=== PATIENT | male | born 1945 | race Caucasian/White ===

== ENCOUNTER 2016-07-21 03:58 | Inpatient (IN) | payer OTHER, MEDICARE ==
[2016-07-21] VITALS (12 sets, daily range): BP systolic 142–230; BP diastolic 74–107; PULSE 62–105; RESP 15–20; TEMP 95.7–98.5; O2SAT 97–100
[~2016-07-21 03:58] MED LIST: AMOX500T PO; ASPI81 PO; BUSP15TA PO; DIPH50TA PO; DOCU1CAP39 PO; DONE10TA14 PO; DULO60 PO; GLUC1CAP14 PO; HCTZ25 PO; LAMI200T PO; LATA.005%O EACH EYE; LISI-360 PO; LISI20 PO; LORA-392 PO; MYLASUS2 PO; OMEG5CAP PO; PRAV40 PO; PROT40TA PO; QUET200 PO; RISPM2 PO; SAXA2.5T PO; TURM500C PO; TYLE500T PO; VITA-13 PO; VITA100020 IM; WELL150T PO; ZANT300T PO; [UNRECOGNIZED DRUG - OTHER] SS
[2016-07-21 04:45] LABS: BASOPHIL # 0.1 TH/MM3 (0-0.2); BASOPHIL % 0.9 % (0.0-2.0); EOSINOPHIL # 0.7 TH/MM3 (0-0.4); HEMATOCRIT 40.1 % (39.0-51.0); HEMO FLAGS DIFF FINAL; LYMPH % 24.5 % (9.0-44.0); LYMPHOCYTE # 2.1 TH/MM3 (1.0-4.8); MEAN CELL VOLUME 85.8 FL (80.0-100.0); MEAN CORPUSCULAR HEMOGLOBIN 29.3 PG (27.0-34.0); MEAN CORPUSCULAR HGB CONC 34.1 % (32.0-36.0); MONO % 9.8 % (0.0-8.0); NEUT % 56.8 % (16.0-70.0); PLATELET COUNT 173 TH/MM3 (150-450); RED BLOOD COUNT 4.67 MIL/MM3 (4.50-5.90); RED CELL DISTRIBUTION WIDTH 13.8 % (11.6-17.2); WHITE BLOOD COUNT 8.8 TH/MM3 (4.0-11.0)
[2016-07-21 04:59] LABS: BICARBONATE 27.6 MEQ/L (21.0-32.0); POTASSIUM 3.4 MEQ/L (3.5-5.1)
--- NOTE | 2016-07-21 05:46 | PD ---
HPI Chief Complaint: Hypertension Time Seen by Provider: 05:45 Travel History International Travel<30 days: No Contact w/Intl Traveler<30days: No Traveled to known affect area: No History of Present Illness HPI The patient is 8 years old. He complains of sudden onset total body pain with chest pressure and shortness of breath. He was also somewhat diaphoretic. He has a history of hypertension hyperlipidemia and diabetes. He reports compliance with his medications including lisinopril and hydrochlorothiazide. He has had no cough he has had no fever. Symptom onset was about 4 hours prior to ER arrival. Timing constant. He quit smoking 4 years ago PFSH Past Medical History Bipolar Disorder: Yes Anxiety: Yes Depression: Yes Cardiovascular Problems: Yes Diabetes: Yes Patient Takes Glucophage: No Diminished Hearing: No Diverticulitis: Yes Endocrine: No Gastrointestinal Disorders: Yes (STATES HX OF ABD PAIN, UNKNOWN CAUSE) GERD: Yes Genitourinary: No Hypertension: Yes Musculoskeletal: Yes (HX OF JAW PAIN) Neurologic: Yes (Diabetic Neuropathy) Psychiatric: Yes (Schizoaffective D/O) Migraines: No Radiation Therapy: No Renal Failure: Yes (Chronic Kidney Disease, Stage 3) Schizophrenia: Yes Seizures: No Tetanus Vaccination: < 5 Years Past Surgical History Surgical History: No Previous Surgery Ear Surgery: Yes Social History Alcohol Use: No (DENIES USING ETOH IN >25 YEARS) Tobacco Use: Yes (quit 4 years ago) Substance Use: No Allergies-Medications (Allergen,Severity, Reaction): Coded Allergies: Amlodipine (Verified Allergy, Severe, Nausea/Vomiting, 07/21/16) Dicyclomine (Verified Allergy, Severe, 07/21/16) abd pain Glipizide (Verified Allergy, Severe, Diarrhea, 07/21/16) Lamictal (Verified Allergy, Severe, 07/21/16) [place] (Verified Allergy, Severe, 07/21/16) disorriented Omeprazole (Verified Allergy, Severe, 07/21/16) abd pain Reglan (Verified Allergy, Severe, Restlessness, 07/21/16) Lactose (Verified Allergy, Intermediate, 07/21/16) Reported Meds & Prescriptions Reported Meds & Active Scripts Active Percocet (Oxycodone-Acetaminophen) 5-325 mg Tab 2 Tab PO Q6H PRN Reported Stool Softener (Docusate Sodium) 100 Mg Cap Motrin Ib (Ibuprofen) 200 Mg Tab 200 Mg PO Q4H PRN Benadryl Allergy (Diphenhydramine HCl) 25 Mg Cap Turmeric Curcumin ([employer] Products) 1 Cap Fish Oil ([place]-3 Fatty Acids) 500 Mg Cap Glucosamine Chondroitin M (Pyiktptnuos-Pbnbfxerpbj-Sub C-) 1 Cap Cap Glucosamine (Glucosamine Sulfate) 500 Mg Cap 500 Mg PO DAILY Vitamin D (Cholecalciferol) 1,000 Unit Cap Aspirin 81 (Aspirin) 81 Mg Tabdr 81 Mg PO DAILY Hydrochlorothiazide 25 Mg Tab 25 Mg PO DAILY Lisinopril 10 Mg Tab 10 Mg PO DAILY Lamotrigine 200 Mg Tab 200 Mg PO BID Buspirone (Buspirone HCl) 30 Mg Tab 30 Mg PO BID Anti-Fungal (Clotrimazole (Topical)) 1 % Cre Onglyza (Saxagliptin) 2.5 Mg Tab 2.5 Mg PO DAILY Pravastatin 40 Mg Tab 40 Mg PO DAILY Latanoprost Opth Drops (Latanoprost) 0.005% Drops 1 Drop EACH EYE HS Refrigerate until opened. Vitamin B12 (Cyanocobalamin) 500 Mcg Tab 500 Mcg PO DAILY Donepezil 10 Mg Tab 10 Mg PO DAILY Bupropion HCl ER 12 HR (Bupropion HCl) 150 Mg Tab 150 Mg PO DAILY Pantoprazole (Pantoprazole Sodium) 40 Mg Tab 40 Mg PO DAILY Duloxetine DR (Duloxetine HCl) 60 Mg Capdr 60 Mg PO DAILY Quetiapine (Quetiapine Fumarate) 400 Mg Tab 400 Mg PO HS Ranitidine (Ranitidine HCl) 300 Mg Tab 300 Mg PO BID Review of Systems Except as stated in HPI: all other systems reviewed are Neg General / Constitutional: No: Fever Physical Exam Narrative GENERAL: 71-year-old male well-nourished well-developed SKIN: Warm and dry. HEAD: Atraumatic. Normocephalic. EYES: Pupils equal and round. No scleral icterus. No injection or drainage. ENT: No nasal bleeding or discharge. Mucous membranes pink and moist. NECK: Trachea midline. No JVD. CARDIOVASCULAR: Regular rate and rhythm. No murmur appreciated. RESPIRATORY: No accessory muscle use. Clear to auscultation. Breath sounds equal bilaterally. GASTROINTESTINAL: Abdomen soft, non-tender, nondistended. Hepatic and splenic margins not palpable. MUSCULOSKELETAL: No obvious deformities. No clubbing. No cyanosis. No edema. Palpable dorsalis pedis and posterior tibialis pulses bilaterally NEUROLOGICAL: Awake and alert. No obvious cranial nerve deficits. Motor grossly within normal limits. Normal speech. PSYCHIATRIC: Appropriate mood and affect; insight and judgment normal. Data Data Last Documented VS Vital Signs Date Time Temp Pulse Resp B/P Pulse Ox O2 Delivery O2 Flow Rate FiO2 07/21/16 07:31 65 16 186/85 99 Nasal Cannula 3 07/21/16 04:01 98.5 Orders Electrocardiogram (07/21/16 04:08) Complete Blood Count With Diff (07/21/16 04:08) Basic Metabolic Panel (Bmp) (07/21/16 04:08) Chest, Single Ap (07/21/16 04:08) Iv Access Insert/Monitor (07/21/16 04:08) Electrocardiogram (07/21/16 05:54) Prothrombin Time / Inr (Pt) (07/21/16 05:54) Act Partial Throm Time (Ptt) (07/21/16 05:54) Troponin I (07/21/16 05:54) Ecg Monitoring (07/21/16 05:54) Iv Access Insert/Monitor (07/21/16 05:54) Oximetry (07/21/16 05:54) Aspirin Chew (Aspirin Chew) (07/21/16 06:00) Nitroglycerin Sl (Nitrostat Sl) (07/21/16 06:00) Hydromorphone Pf Inj (Dilaudid Pf Inj) (07/21/16 06:00) Potassium Chloride (Kcl) (07/21/16 07:30) Admit Order (Ed Use Only) (07/21/16 07:34) Activity Bed Rest With Brp (07/21/16 07:34) Vital Signs (Adult) Q4H (07/21/16 07:34) Cardiac Rhythm .As Directed (07/21/16 07:34) ^ Notify Dr: Other .PRN (07/21/16 07:34) ^ Notify Dr. Parameters (07/21/16 07:34) Resp Oxygen Nasal Cannula (07/21/16 ) Diet Npo (07/21/16 Breakfast) Ckmb (Isoenzyme) Profile (07/21/16 07:34) Ckmb (Isoenzyme) Profile (07/21/16 10:34) Troponin I (07/21/16 07:34) Troponin I (07/21/16 10:34) Electrocardiogram (07/21/16 07:34) Electrocardiogram (07/21/16 10:34) ^ Obtain (07/21/16 07:34) Sodium Chloride 0.9% Flush (Ns Flush) (07/21/16 07:45) Sodium Chloride 0.9% Flush (Ns Flush) (07/21/16 09:00) Acetamin-Hydrocod 325-7.5 Mg ([place] 7.5 (07/21/16 07:45) Morphine Inj (Morphine Inj) (07/21/16 07:45) Ondansetron Inj (Zofran Inj) (07/21/16 07:45) Lisinopril (Prinivil) (07/21/16 09:00) Nitroglycerin Sl (Nitrostat Sl) (07/21/16 07:45) Aspirin (Aspirin) (07/21/16 09:00) Temazepam (Restoril) (07/21/16 07:45) Alprazolam (Xanax) (07/21/16 07:45) Production Checker / Telemetry MANUEL.Q8H (07/21/16 07:34) Labs Laboratory Tests Test 07/21/16 07/21/16 04:25 06:05 White Blood Count 8.8 TH/MM3 Red Blood Count 4.67 MIL/MM3 Hemoglobin 13.7 GM/DL Hematocrit 40.1 % Mean Corpuscular Volume 85.8 FL Mean Corpuscular Hemoglobin 29.3 PG Mean Corpuscular Hemoglobin 34.1 % Concent Red Cell Distribution Width 13.8 % Platelet Count 173 TH/MM3 Mean Platelet Volume 10.5 FL Neutrophils (%) (Auto) 56.8 % Lymphocytes (%) (Auto) 24.5 % Monocytes (%) (Auto) 9.8 % Eosinophils (%) (Auto) 8.0 % Basophils (%) (Auto) 0.9 % Neutrophils # (Auto) 5.0 TH/MM3 Lymphocytes # (Auto) 2.1 TH/MM3 Monocytes # (Auto) 0.9 TH/MM3 Eosinophils # (Auto) 0.7 TH/MM3 Basophils # (Auto) 0.1 TH/MM3 CBC Comment DIFF FINAL Differential Comment Sodium Level 140 MEQ/L Potassium Level 3.4 MEQ/L Chloride Level 102 MEQ/L Carbon Dioxide Level 27.6 MEQ/L Anion Gap 10 MEQ/L Blood Urea Nitrogen 28 MG/DL Creatinine 1.64 MG/DL Estimat Glomerular Filtration 42 ML/MIN Rate Random Glucose 127 MG/DL Calcium Level 9.4 MG/DL Troponin I LESS THAN 0.02 NG/ML Prothrombin Time 11.7 SEC Prothromb Time International 1.1 RATIO Ratio Activated Partial 27.1 SEC Thromboplast Time MDM Medical Decision Making Medical Screen Exam Complete: Yes Emergency Medical Condition: Yes Medical Record Reviewed: Yes Differential Diagnosis NSTEMI, unstable angina, coronary vasospasm, PE, PTX, aortic dissection, pericarditis, myocarditis, endocarditis, PNA, esophageal disease, aneurysm, musculoskeletal etiologies, anxiety, cocaine/sympathomimetic abuse Narrative Course CBC & BMP Diagram 07/21/16 04:25 Troponin is undetectable INR 1.1 Patient's blood pressure has improved. He suffers with chronic foot pain, neuropathic in nature most likely with claudication as well. The condition is chronic however the chest pressure is of some concern. Chest pain center evaluation considered reasonable Diagnosis Primary Impression: Chest pain Qualified Code: R07.9 - Chest pain, unspecified type Additional Impressions: HTN (hypertension) Qualified Code: I15.9 - Secondary hypertension Neuropathy Claudication of both lower extremities Scripts Oxycodone-Acetaminophen (Percocet)5-325 mg Tab2 Tab PO Q6H PRN (PAIN SCALE 6 TO 10) #20 TAB Ref 0 Prov:Sekou Galvin MD 07/21/16 Sekou Galvin MD Jul 21, 2016 05:46
[2016-07-21] MEDS ORDERED: MOTR200T4 PO (05:54)
[2016-07-21] MEDS ORDERED: ANTI1CRE6 (05:54)
[2016-07-21] MEDS ORDERED: LAMO200T PO (05:54)
[2016-07-21] MEDS ORDERED: HYDR25TA5 PO (05:54)
[2016-07-21] MEDS ORDERED: GLUC1CAP9 (05:54)
[2016-07-21] MEDS ORDERED: BUPR1TAB29 PO (05:54)
[2016-07-21] MEDS ORDERED: PANT40TA3 PO (05:54)
[2016-07-21] MEDS ORDERED: PRAV40TA2 PO (05:54)
[2016-07-21] MEDS ORDERED: ASPI-110 PO (05:54)
[2016-07-21] MEDS ORDERED: VITA100032 (05:54)
[2016-07-21] MEDS ORDERED: FISH500C (05:54)
[2016-07-21] MEDS ORDERED: GLUC500C5 PO (05:54)
[2016-07-21] MEDS ORDERED: LATA0.002 EACH EYE (05:54)
[2016-07-21] MEDS ORDERED: BENA25CA4 (05:54)
[2016-07-21] MEDS ORDERED: RANI300T PO (05:54)
[2016-07-21] MEDS ORDERED: TURMCAP (05:54)
[2016-07-21] MEDS ORDERED: DULO1CAP3 PO (05:54)
[2016-07-21] MEDS ORDERED: LISI10TA3 PO (05:54)
[2016-07-21] MEDS ORDERED: SAXA2.5T2 PO (05:54)
[2016-07-21] MEDS ORDERED: STOO100C (05:54)
[2016-07-21] MEDS ORDERED: BUSP30TA PO (05:54)
[2016-07-21] MEDS ORDERED: VITA500T49 PO (05:54)
[2016-07-21] MEDS ORDERED: DONE10TA7 PO (05:54)
[2016-07-21] MEDS ORDERED: QUET1TAB11 PO (05:54)
[2016-07-21] MEDS ORDERED: ASPIRIN 81 MG CHEW TAB PO ONE (06:00)
[2016-07-21] MEDS ORDERED: HYDROmorphone HCL PF 1 MG/ML VIAL IV PUSH ONE (06:00)
[2016-07-21] MEDS: NITROGLYCERIN 0.4 MG SL 25 TABS/BTL SL SCH ×3 (06:05→06:12)
[2016-07-21 06:29] LABS: APTT (PATIENT) 27.1 SEC (24.3-30.1); INTERNATIONAL NORMALIZED RATIO 1.1 RATIO; PROTHROMBIN TIME - PATIENT 11.7 SEC (9.8-11.6)
--- NOTE | 2016-07-21 06:53 | RADRPT ---
EXAM DATE/TIME: 07/21/2016 04:43 [facility] COMPARISON: No previous studies available for comparison. INDICATIONS : Patient states high blood pressure and chest tightness since this morning. MEDICAL HISTORY : None. SURGICAL HISTORY : None. ENCOUNTER: Initial ACUITY: 1 day PAIN SCORE: 0/10 LOCATION: Bilateral chest FINDINGS: A single view of the chest demonstrates the lungs to be symmetrically aerated without evidence of mas s, infiltrate or effusion. The cardiomediastinal contours are unremarkable. Osseous structures are intact. CONCLUSION: No acute disease. Adonis Penn MD on July 21, 2016 at 6:51 Board Certified Radiologist. This report was verified electronically.
[2016-07-21] MEDS ORDERED: HYDR-3533 PO (07:22)
[2016-07-21] MEDS ORDERED: PENI500T PO (07:22)
[2016-07-21] MEDS ORDERED: POTASSIUM CHLORIDE 20 MEQ CONTROLLED RELEASE TAB PO ONE (07:30)
[2016-07-21] MEDS ORDERED: PERC5TAB12 PO (07:39)
[2016-07-21] MEDS ORDERED: ONDANSETRON HCL 4 MG/2 ML VIAL IV PRN (07:45)
[2016-07-21] MEDS ORDERED: MORPHINE SULFATE 4 MG/ML INJ IV PRN (07:45)
[2016-07-21] MEDS ORDERED: ACETAMINOPHEN/HYDROcodone 325 MG/7.5 MG TAB PO PRN (07:45)
[2016-07-21] MEDS ORDERED: NITROGLYCERIN 0.4 MG SL 25 TABS/BTL SL PRN (07:45)
[2016-07-21] MEDS ORDERED: TEMAZEPAM 15 MG CAP PO PRN (07:45)
[2016-07-21] MEDS ORDERED: SODIUM CHLORIDE 0.9% FLUSH 5 ML FLUSH IVF PRN (07:45)
[2016-07-21 09:01] LABS: CREATINE KINASE 285 U/L (39-308)
[2016-07-21] MEDS: ASPIRIN 325 MG TAB PO SCH (09:05)
[2016-07-21] MEDS: SODIUM CHLORIDE 0.9% FLUSH 5 ML FLUSH IVF SCH ×2 (09:05→21:22)
[2016-07-21] MEDS: LISINOPRIL 10 MG TAB PO SCH ×2 (09:05→13:35)
[2016-07-21 09:13] LABS: CKMB 2.7 NG/ML (0.5-3.6)
[2016-07-21] MEDS ORDERED: DEXTROSE 50% IN WATER 50 ML VIAL(D50) IV PRN (09:45)
[2016-07-21] MEDS ORDERED: GLUCAGON 1 MG/ML VIAL IM/SQ PRN (09:45)
[2016-07-21] MEDS ORDERED: SODIUM CHLOR 0.9% 1000 ML INJ 1,000 ML IV SCH (10:00)
[2016-07-21] MEDS ORDERED: IOHEXOL 350 MG/ML 10 ML VIAL (for RAD DIAG) IV ONE (10:26)
[2016-07-21] MEDS: INSULIN ASPART SUPPLEMENTAL SCALE SQ SCH ×3 (11:00→21:00)
--- NOTE | 2016-07-21 12:26 | HHI.HP ---
HPI [facility] Chief Complaint Leg pain, body pain, and hypertension History of Present Illness This is a 71-year-old male that presents to the ED with complaints of pain over his entire body. This began at 2:00 in the morning. Initially the symptoms were throughout his body lasting 2 hours. Now the pain remains in his legs bilaterally. Denies trauma. Denies shortness of breath nausea or diaphoresis. He also complains of being hypertensive this morning. He states that his medications generally control his hypertension. Review of Systems General: Patient denies fevers, chills recent, and recent travel HEENT: Patient denies headache, sore throat, difficulty swallowing. Cardiovascular: Has the chest discomfort as mentioned above which he describes as pain all over including his torso. Denies sensation of heart beating rapidly or irregularly. No syncope. Respiratory: Denies shortness of breath or inspirational chest discomfort. Denies coughing wheezing or hemoptysis. GI: Patient denies nausea, vomiting, diarrhea, abdominal pain, bloody stools. Musculoskeletal: Complains of entire body pain initially. Currently only discomfort in his legs. Denies swelling in his legs. Neurovascular: Patient denies numbness, tingling, weakness in extremities. Denies headache. Endocrine: Denies polyuria and polydipsia. Hematologic: Denies easy bruising. Skin: Denies rash or itching. Past Family Social History Allergies: Coded Allergies: Amlodipine (Verified Allergy, Severe, Nausea/Vomiting, 07/21/16) Dicyclomine (Verified Allergy, Severe, 07/21/16) abd pain Glipizide (Verified Allergy, Severe, Diarrhea, 07/21/16) Lamictal (Verified Allergy, Severe, 07/21/16) [place] (Verified Allergy, Severe, 07/21/16) disorriented Omeprazole (Verified Allergy, Severe, 07/21/16) abd pain Reglan (Verified Allergy, Severe, Restlessness, 07/21/16) Lactose (Verified Allergy, Intermediate, 07/21/16) Past Medical History Hypertension, hyperlipidemia, diabetes, diabetic neuropathy, anxiety, schizoaffective disorder, chronic kidney disease, tobacco abuse however recently quitting. Past Surgical History Noncontributory. Reported Medications Reported Meds & Active Scripts Active Percocet (Oxycodone-Acetaminophen) 5-325 mg Tab 2 Tab PO Q6H PRN Reported Stool Softener (Docusate Sodium) 100 Mg Cap Motrin Ib (Ibuprofen) 200 Mg Tab 200 Mg PO Q4H PRN Benadryl Allergy (Diphenhydramine HCl) 25 Mg Cap Turmeric Curcumin ([employer] Natural Products) 1 Cap Fish Oil ([place]-3 Fatty Acids) 500 Mg Cap Glucosamine Chondroitin M (Atfqszjllsw-Zdkjbsluuza-Zye C-) 1 Cap Cap Glucosamine (Glucosamine Sulfate) 500 Mg Cap 500 Mg PO DAILY Vitamin D (Cholecalciferol) 1,000 Unit Cap Aspirin 81 (Aspirin) 81 Mg Tabdr 81 Mg PO DAILY Hydrochlorothiazide 25 Mg Tab 25 Mg PO DAILY Lisinopril 10 Mg Tab 10 Mg PO DAILY Lamotrigine 200 Mg Tab 200 Mg PO BID Buspirone (Buspirone HCl) 30 Mg Tab 30 Mg PO BID Anti-Fungal (Clotrimazole (Topical)) 1 % Cre Onglyza (Saxagliptin) 2.5 Mg Tab 2.5 Mg PO DAILY Pravastatin 40 Mg Tab 40 Mg PO DAILY Latanoprost Opth Drops (Latanoprost) 0.005% Drops 1 Drop EACH EYE HS Refrigerate until opened. Vitamin B12 (Cyanocobalamin) 500 Mcg Tab 500 Mcg PO DAILY Donepezil 10 Mg Tab 10 Mg PO DAILY Bupropion HCl ER 12 HR (Bupropion HCl) 150 Mg Tab 150 Mg PO DAILY Pantoprazole (Pantoprazole Sodium) 40 Mg Tab 40 Mg PO DAILY Duloxetine DR (Duloxetine HCl) 60 Mg Capdr 60 Mg PO DAILY Quetiapine (Quetiapine Fumarate) 400 Mg Tab 400 Mg PO HS Ranitidine (Ranitidine HCl) 300 Mg Tab 300 Mg PO BID Active Ordered Medications Current Medications Medications (Trade) Dose Ordered Sig/Hans Route Start Time Stop Time Status Last Admin (NS Flush) 2 ml UNSCH PRN IVF 07/21/16 07:45 (NS Flush) 2 ml BID IVF 07/21/16 09:00 07/21/16 09:05 ([employer] 7.5-325 Mg) 1 tab Q4H PRN PO 07/21/16 07:45 (Morphine Inj) 2 mg Q4H PRN IV 07/21/16 07:45 (Zofran Inj) 4 mg Q6H PRN IV 07/21/16 07:45 (Prinivil) 10 mg DAILY PO 07/21/16 09:00 07/21/16 09:05 (Nitrostat Sl) 0.4 mg Q5M PRN SL 07/21/16 07:45 (Aspirin) 325 mg DAILY PO 07/21/16 09:00 07/21/16 09:05 (Restoril) 15 mg HS PRN PO 07/21/16 07:45 Alprazolam 0.25 mg 0.25 mg Q8H PRN PO 07/21/16 07:45 (NS 1000 ml Inj) 1,000 ml @ 125 mls/hr Q8H IV 07/21/16 10:00 07/21/16 17:59 07/21/16 10:01 (D50w (Vial) Inj) 25 ml UNSCH PRN IV 07/21/16 09:45 (Glucagon Inj) 1 mg UNSCH PRN IM/SQ 07/21/16 09:45 (Wellbutrin Sr) 150 mg DAILY PO 07/21/16 12:00 (Buspar) 30 mg BID PO 07/21/16 12:00 (Aricept) 10 mg DAILY PO 07/21/16 12:00 (Cymbalta Dr) 60 mg DAILY PO 07/21/16 12:00 (Hydrodiuril) 25 mg DAILY PO 07/21/16 12:00 (LaMICtal) 200 mg BID PO 07/21/16 12:00 (Prinivil) 10 mg DAILY PO 07/21/16 12:00 (Percocet 5-325 Mg) 2 tab Q6H PRN PO 07/21/16 12:00 (Protonix) 40 mg DAILY PO 07/21/16 12:00 (Pravachol) 40 mg DAILY PO 07/21/16 12:00 Family History Family history of CAD. Social History Patient quit smoking a couple months ago but prior to that he smoked a pack a day for more than 40 years. He denies alcohol or illicit drugs. Physical Exam Vital Signs Vital Signs Date Time Temp Pulse Resp B/P Pulse Ox O2 Delivery O2 Flow Rate FiO2 07/21/16 11:03 66 15 206/96 98 Nasal Cannula 3 07/21/16 09:00 67 15 176/93 99 Room Air 07/21/16 08:47 99 Nasal Cannula 4.00 07/21/16 08:30 62 15 177/93 99 Room Air 07/21/16 07:31 65 16 186/85 99 Nasal Cannula 3 07/21/16 06:55 16 07/21/16 06:17 16 99 Nasal Cannula 3 07/21/16 06:17 62 16 155/80 99 Nasal Cannula 3 07/21/16 05:36 67 18 100 2 07/21/16 05:11 64 20 204/100 97 Room Air 07/21/16 04:01 98.5 105 20 230/107 100 Room Air Physical Exam GENERAL: This is a well-nourished, well-developed patient, in no apparent distress. Patient speaks in clear complete sentences. Patient is pleasant. HEENT: Head is atraumatic and normocephalic. Neck is supple without lymphadenopathy and trachea is midline. No JVD or carotid bruits. CARDIOVASCULAR: Regular rate and rhythm without murmurs, gallops, or rubs. RESPIRATORY: Clear to auscultation. Breath sounds equal bilaterally. No wheezes , rales, or rhonchi. Chest wall is nontender. No use of accessory muscles. GASTROINTESTINAL: Abdomen is nontender, nondistended. Abdomen soft. No obvious pulsatile mass or bruit. No CVA tenderness. Strong femoral pulses bilaterally. Normal bowel sounds in all quadrants. MUSCULOSKELETAL: Patient is moving upper and lower extremities freely however he is complaining of pain in bilateral legs with movement. No Homans sign. Myself and Dr. Marlon Kraus are unable to palpate dorsalis pedis or posterior tibialis pulses in either foot. The feet are cold with pallor. NEUROLOGICAL: Patient is alert and oriented. Cranial nerves 2-12 are grossly intact. No focal deficits and speech is clear. SKIN: No rash and turgor is normal. Laboratory Laboratory Tests Test 07/21/16 07/21/16 07/21/16 04:25 06:05 07:55 White Blood Count 8.8 Red Blood Count 4.67 Hemoglobin 13.7 Hematocrit 40.1 Mean Corpuscular Volume 85.8 Mean Corpuscular Hemoglobin 29.3 Mean Corpuscular Hemoglobin 34.1 Concent Red Cell Distribution Width 13.8 Platelet Count 173 Mean Platelet Volume 10.5 Neutrophils (%) (Auto) 56.8 Lymphocytes (%) (Auto) 24.5 Monocytes (%) (Auto) 9.8 Eosinophils (%) (Auto) 8.0 Basophils (%) (Auto) 0.9 Neutrophils # (Auto) 5.0 Lymphocytes # (Auto) 2.1 Monocytes # (Auto) 0.9 Eosinophils # (Auto) 0.7 Basophils # (Auto) 0.1 CBC Comment DIFF FINAL Differential Comment Sodium Level 140 Potassium Level 3.4 Chloride Level 102 Carbon Dioxide Level 27.6 Anion Gap 10 Blood Urea Nitrogen 28 Creatinine 1.64 Estimat Glomerular Filtration 42 Rate Random Glucose 127 Calcium Level 9.4 Troponin I LESS THAN 0.02 LESS THAN 0.02 Prothrombin Time 11.7 Prothromb Time International 1.1 Ratio Activated Partial 27.1 Thromboplast Time Total Creatine Kinase 285 Creatine Kinase MB 2.7 Result Diagram: 07/21/1642407/21/16424 Imaging Last 24 hours Impressions Chest X-Ray 07/21/16407 Signed Impressions: Service Date/Time: Thursday, July 21, 2016 04:43 - CONCLUSION: No acute disease. Adonis Penn MD Course EKGs have sinus rhythm without significant ST segment depressions or elevations. Assessment and Plan Assessment and Plan 1) Leg pain: Patient has bilateral leg pains. He was seen by Dr. Marlon Kraus of cardiology in the chest pain center. We spoke with Dr. Aldrich and he will evaluate the patient. We are also getting a CTA with runoff to evaluate for possible arterial occlusions. Further plan will be pending CT imaging and evaluation. 2) Generalized pain: He did not complain of specific chest discomfort. He was seen by Dr. Marlon Kraus of cardiology in the chest pain center and no further cardiac workup will be needed at this time. 3) Diabetes: Continue home meds. Will be on a sliding scale insulin coverage while in chest pain center. Follow a diabetic diet. 4) Hypertension: Continue meds. 5) Hyperlipidemia: Continue current medications. 6) Schizoaffective disorder: Continue current medications. 7) Chronic kidney disease: Patient to continue to follow-up with his physician. Discussed Condition With I spoke with Dr. Aldrich and he will evaluate the patient. We will get a CT a with runoff to check for arterial occlusions. Juancho Gomez Jul 21, 2016 12:26
[2016-07-21 12:33] LABS: CREATINE KINASE 260 U/L (39-308)
--- NOTE | 2016-07-21 12:33 | PD.CAR.PN ---
CVT Progress Note Subjective/Hospital Course: Patient seen and evaluated Full consult dictated Thanks J Objective: Vital Signs Date Time Temp Pulse Resp B/P Pulse Ox O2 Delivery O2 Flow Rate FiO2 07/21/16 11:03 66 15 206/96 98 Nasal Cannula 3 07/21/16 09:00 67 15 176/93 99 Room Air 07/21/16 08:47 99 Nasal Cannula 4.00 07/21/16 08:30 62 15 177/93 99 Room Air 07/21/16 07:31 65 16 186/85 99 Nasal Cannula 3 07/21/16 06:55 16 07/21/16 06:17 16 99 Nasal Cannula 3 07/21/16 06:17 62 16 155/80 99 Nasal Cannula 3 07/21/16 05:36 67 18 100 2 07/21/16 05:11 64 20 204/100 97 Room Air 07/21/16 04:01 98.5 105 20 230/107 100 Room Air Labs: Laboratory Tests Test 07/21/16 07/21/16 07/21/16 04:25 06:05 07:55 White Blood Count 8.8 TH/MM3 (4.0-11.0) Red Blood Count 4.67 MIL/MM3 (4.50-5.90) Hemoglobin 13.7 GM/DL (13.0-17.0) Hematocrit 40.1 % (39.0-51.0) Mean Corpuscular Volume 85.8 FL (80.0-100.0) Mean Corpuscular Hemoglobin 29.3 PG (27.0-34.0) Mean Corpuscular Hemoglobin 34.1 % Concent (32.0-36.0) Red Cell Distribution Width 13.8 % (11.6-17.2) Platelet Count 173 TH/MM3 (150-450) Mean Platelet Volume 10.5 FL (7.0-11.0) Neutrophils (%) (Auto) 56.8 % (16.0-70.0) Lymphocytes (%) (Auto) 24.5 % (9.0-44.0) Monocytes (%) (Auto) 9.8 % (0.0-8.0) Eosinophils (%) (Auto) 8.0 % (0.0-4.0) Basophils (%) (Auto) 0.9 % (0.0-2.0) Neutrophils # (Auto) 5.0 TH/MM3 (1.8-7.7) Lymphocytes # (Auto) 2.1 TH/MM3 (1.0-4.8) Monocytes # (Auto) 0.9 TH/MM3 (0-0.9) Eosinophils # (Auto) 0.7 TH/MM3 (0-0.4) Basophils # (Auto) 0.1 TH/MM3 (0-0.2) CBC Comment DIFF FINAL Differential Comment Sodium Level 140 MEQ/L (136-145) Potassium Level 3.4 MEQ/L (3.5-5.1) Chloride Level 102 MEQ/L (98-107) Carbon Dioxide Level 27.6 MEQ/L (21.0-32.0) Anion Gap 10 MEQ/L (5-15) Blood Urea Nitrogen 28 MG/DL (7-18) Creatinine 1.64 MG/DL (0.60-1.30) Estimat Glomerular Filtration 42 ML/MIN (>89) Rate Random Glucose 127 MG/DL (74-106) Calcium Level 9.4 MG/DL (8.5-10.1) Troponin I LESS THAN 0.02 LESS THAN 0.02 NG/ML NG/ML (0.02-0.05) (0.02-0.05) Prothrombin Time 11.7 SEC (9.8-11.6) Prothromb Time International 1.1 RATIO Ratio Activated Partial 27.1 SEC Thromboplast Time (24.3-30.1) Total Creatine Kinase 285 U/L (39-308) Creatine Kinase MB 2.7 NG/ML (0.5-3.6) Result Diagram: 07/21/16 0425 07/21/16 0425 Velma Aldrich MD Jul 21, 2016 12:33
[2016-07-21] MEDS: HYDROCHLOROTHIAZIDE 25 MG TAB PO SCH (13:34)
[2016-07-21] MEDS: PANTOPRAZOLE SOD 40 MG DELAYED RELEASE TAB PO SCH (13:35)
--- NOTE | 2016-07-21 13:45 | RADRPT ---
EXAM DATE/TIME: 07/21/2016 10:19 [facility] COMPARISON: No previous studies available for comparison. INDICATIONS: Occlusion, severe bilateral leg pain IV CONTRAST: 99 cc Omnipaque 350 (iohexol) IV RADIATION DOSE: 2.51 CTDIvol (mGy) MEDICAL HISTORY: Cardiovascular disease. Hypertension. Renal insufficiency. Diabetes SURGICAL HISTORY: None. ENCOUNTER: Initial ACUITY: 1 day PAIN SCALE: 7/10 LOCATION: Bilateral extremities TECHNIQUE: Volumetric scanning was performed using a multi-row detector CT scanner. The data was post processed with a variety of visualization algorithms including full volume maximum intensity projection, multi -planar sliding thin slab reformation, curved planar reformation, and surface rendering techniques. Using automated exposure control and adjustment of the mA and/or kV according to patient size, radiat ion dose was kept as low as reasonably achievable to obtain optimal diagnostic quality images. FINDINGS: ABDOMINAL AORTA: There is atherosclerotic calcification of the abdominal aorta with mild ectasia with a maximum AP monica meter of 2.8 cm. There is mural thrombus with no significant stenosis. Single bilateral renal arter ies are patent. SMA is widely patent with a mild to moderate ostial stenosis of the celiac. PELVIS: Atherosclerotic calcification of the ceiliac's bilaterally. The right iliac system is patent but the re is a moderate stenosis at the origin of the left external. The iliac's are otherwise patent. The re is scattered atherosclerotic calcifications of the hypogastric's bilaterally. RIGHT LOWER EXTREMITY: Profunda and SFA are patent with atherosclerotic irregularity of the SFA. The popliteal is patent bu t shows significant short segment stenosis across its length but remains patent down to the trifurcat ion. Dominant runoff is via the posterior tibial and peroneal. There is a focal high grade stenosis in the distal anterior tibial just above the ankle. LEFT LOWER EXTREMITY: Again, the profunda and SFA are patent with scattered atherosclerotic calcification of the SFA. At t he popliteal, there is atherosclerotic irregularity with short segment high grade stenosis at multipl e levels. Popliteal is otherwise patent down to the trifurcation with three vessel run off. MISCELLANEOUS: Large amount of stool identified throughout the colon. The abdominal and pelvis viscera are otherwis e intact. Minimal scarring in the right lung base. CONCLUSION: 1. Patient appears to have a moderate stenosis of the ostium at the left external iliac which would be amenable to endovascular repair if clinically warranted. 2. There is segmental short segment high grade stenosis in the popliteal vessels bilaterally. .agai n, these may be amenable to endovascular repair. 3. Two vessel run off on the right with three vessel run off on the left. 4. Moderate ostial stenosis of the celiac. The SMA and both renal arteries are patent. 5. Large amount of stool throughout the colon. Mathew Gonzales MD on July 21, 2016 at 13:19 Board Certified Radiologist. This report was verified electronically.
[2016-07-21 13:53] LABS: CKMB 3.5 NG/ML (0.5-3.6)
[2016-07-21] MEDS: PRAVASTATIN SOD 40 MG TAB PO SCH (14:36)
[2016-07-21] MEDS: DONEPEZIL HCL 5 MG TAB PO SCH (14:36)
[2016-07-21] MEDS: DULoxetine HCl DR 60 MG CAP PO SCH (14:37)
[2016-07-21] MEDS: busPIRone HCL 10 MG TAB PO SCH ×2 (14:37→21:22)
[2016-07-21] MEDS: buPROPion HCL 150 MG SUSTAINED RELEASE TAB PO SCH (14:37)
[2016-07-21] MEDS: lamoTRIgine 100 MG TAB PO SCH ×2 (14:38→21:22)
[2016-07-21] MEDS ORDERED: cloNIDine HCL 0.1 MG TAB PO PRN (16:00)
--- NOTE | 2016-07-21 16:01 | EKG ---
Date Performed: 07/21/2016 Time Performed: 08:02:32 PTAGE: 71 years EKG: SINUS BRADYCARDIA LEFT ANTERIOR FASCICULAR BLOCK ABNORMAL ECG PREVIOUS TRACING : 07/21/2016 04.14 Since previous tracing, non specific T wave changes are pre sent DOCTOR: Marlon Kraus Interpretating Date/Time 07/21/2016 15:59:50
--- NOTE | 2016-07-21 16:02 | EKG ---
Date Performed: 07/21/2016 Time Performed: 04:14:03 PTAGE: 71 years EKG: Sinus rhythm LEFT ANTERIOR FASCICULAR BLOCK ABNORMAL ECG PREVIOUS TRACING : 07/20/2015 16.24 Since previous tracing, no significant change noted DOCTOR: Marlon Kraus Interpretating Date/Time 07/21/2016 16:00:21
[2016-07-21] MEDS ORDERED: HEPARIN-D5W INJ 250 ML IV SCH (17:00)
[2016-07-21] MEDS: amLODIPine BESYLATE 5 MG TAB PO SCH (17:11)
--- NOTE | 2016-07-21 21:01 | PD.CAR.PN ---
CVT Progress Note Subjective/Hospital Course: I reviewed the CAT scan and patient has some inflow limitations especially around the area left external iliac artery however this is not hemodynamically significant Patient does have however near complete occlusion of both popliteal arteries and then reconstitution with two-vessel runoff to the feet I'll discuss with the patient the option of balloon dilatation of both of these with understanding that patient at this point does not have critical limb ischemia. With complete occlusion of popliteal arteries however patient will develop more severe ischemia and claudication so barring any contraindications this will be recommended procedure at this time We'll discuss this with patient tomorrow and schedule patient for endovascular stenting on Objective: Vital Signs Date Time Temp Pulse Resp B/P Pulse Ox O2 Delivery O2 Flow Rate FiO2 07/21/16 19:21 97.5 68 20 156/74 97 07/21/16 17:17 20 07/21/16 17:06 95.7 70 18 211/96 98 07/21/16 16:50 86 18 142/86 98 Nasal Cannula 2 07/21/16 12:35 64 18 184/88 100 Nasal Cannula 2 07/21/16 11:03 66 15 206/96 98 Nasal Cannula 3 07/21/16 09:00 67 15 176/93 99 Room Air 07/21/16 08:47 99 Nasal Cannula 4.00 07/21/16 08:30 62 15 177/93 99 Room Air 07/21/16 07:31 65 16 186/85 99 Nasal Cannula 3 07/21/16 06:55 16 07/21/16 06:17 16 99 Nasal Cannula 3 07/21/16 06:17 62 16 155/80 99 Nasal Cannula 3 07/21/16 05:36 67 18 100 2 07/21/16 05:11 64 20 204/100 97 Room Air 07/21/16 04:01 98.5 105 20 230/107 100 Room Air Labs: Laboratory Tests Test 07/21/16 10:40 Total Creatine Kinase 260 U/L (39-308) Creatine Kinase MB 3.5 NG/ML (0.5-3.6) Troponin I LESS THAN 0.02 NG/ML (0.02-0.05) Result Diagram: 07/21/16 0425 07/21/16 0425 Velma Aldrich MD Jul 21, 2016 21:01
[2016-07-21] MEDS: FAMOTIDINE 20 MG TAB PO SCH (21:22)
[2016-07-21] MEDS: oxyCODONE/ACETAMINOPHEN 5 MG/325 MG TAB PO PRN (21:24)
--- NOTE | 2016-07-21 21:58 | MB ---
cc: VELMA SANTAMARIA MD DATE OF CONSULTATION 07/21/[address] Santamaria, vascular surgery. REASON FOR CONSULTATION Ischemia of both legs. HISTORY OF THE PRESENT ILLNESS This 71-year-old male presents to emergency room with complaints of cold and insensate legs. The patient apparently started having this this morning. Initially symptoms were apparently pains over his body but now only in legs. The patient denies having sustained any injuries and being diaphoretic. He can walk as far as he wants but with stops. He has poorly controlled hypertension. Question arises about any vascular implications. PAST SURGICAL HISTORY The patient does not have any surgical history. PAST MEDICAL HISTORY 1. The patient is hypertensive. 2. Generally constipated. 3. Prostatic hypertrophic. 4. Previous coronary artery disease and was seen by the spinning frame fixer, goes to the NH for care. SOCIAL HISTORY The patient used to smoked a few months ago, and smoked a pack a day for about 50 years. Does not drink. Does not use drugs. REVIEW OF SYSTEMS The patient is awake and alert but otherwise has no problems other than the above-noted. PHYSICAL EXAMINATION GENERAL: Reveals a 71-year-old male in no acute distress. HEENT: Normocephalic. No trauma to the head. Pupils equally reactive. Extraocular muscles intact. NECK: Bilateral carotid pulses and a right-sided bruit. CHEST: Bilateral breath sounds decreased over both lung stewart consistent with COPD of a moderate degree. HEART: Regular rhythm. ABDOMEN: Soft. No rebound or guarding. No masses. EXTREMITIES: The patient has weak palpable femoral pulses. The right is a little better than the left. He has dopplerable popliteal, very weak, and then dorsalis pedis, posterior tibial which are better. Right-sided pulses are slightly better than on the left by Doppler signal. Feet are cool but certainly not acutely ischemic and slightly blotchy almost as if the patient had a shower of emboli but it is unlikely that this happened. He may have some vasospastic disorder in addition. NEUROLOGICAL: The patient is fully intact. IMPRESSION AND RECOMMENDATIONS I reviewed laboratory and diagnostic procedures. This gentleman has clearly decreased pulses in both feet and has weak pulses in the groins. I suspect the there is probably some degree of aortoiliac disease but probably some disease also around the superficial femoral artery distally or popliteal artery. At this point the patient will undergo CTA with runoff. We will see what it shows and go from there. The patient may or may not need some vascular intervention, he does not have any acute ischemia that would warrant emergency surgery, yet based on the CTA findings combined with his clinical symptoms, we might tailor the therapy. The patient does not have limb threatening ischemia at this time. I thank you much for referral. Velma AC/KK /7:17 PM /9:46 PM
[2016-07-21 23:08] LABS: APTT (PATIENT) 42.7 SEC (24.3-30.1); INTERNATIONAL NORMALIZED RATIO 1.1 RATIO; PROTHROMBIN TIME - PATIENT 11.9 SEC (9.8-11.6)
--- NOTE | 2016-07-21 23:41 | RADRPT ---
EXAM DATE/TIME: 07/21/2016 22:55 [facility] COMPARISON: No previous studies available for comparison. INDICATIONS : Right-sided bruit. MEDICAL HISTORY : Hypercholesterolemia. Hypertension. Diverticulitis. Diabetic neuropathy. GERD. Stage III chronic mary l disease. Herniated disk. Diabetes. Bipolar. Schizophrenia. Depression. Anxiety. SURGICAL HISTORY : Right ear surgery. ENCOUNTER: Initial ACUITY: 1 day PAIN SCORE: 0/10 LOCATION: Bilateral neck PEAK SYSTOLIC VELOCITIES (cm/sec): ICA/CCA RATIO: Right: 1.7 Left: 0.8 ICA: Right: 124 Left: 84 CCA: Right: 74 Left: 102 ECA: Right: 116 Left: 108 VERTEBRAL: Right: 50 antegrade Left: 51 antegrade Elevated flow velocities and ICA/CCA ratios have been found to correlate with increased degrees of vessel stenosis, calculated as percentage of diameter relative to a normal segment of distal ICA/CCA FINDINGS: There is antegrade flow in the vertebral arteries bilaterally. Mild elevated velocity of the right in ternal carotid artery with moderate atherosclerotic plaquing at the bifurcation, not hemodynamically significant at this time. On the left there is mild atherosclerotic plaquing at the carotid bifurcati on without evidence for hemodynamically significant stenosis. CONCLUSION: 1. No evidence for hemodynamically significant stenosis. Adonis Penn MD on July 21, 2016 at 23:39 Board Certified Radiologist. This report was verified electronically.
[2016-07-22] VITALS (7 sets, daily range): BP systolic 139–184; BP diastolic 79–95; PULSE 61–85; RESP 16–20; TEMP 95–98.5; O2SAT 95–97
[2016-07-22] MEDS: ALPRAZolam 0.25 MG TAB PO PRN ×3 (02:42→22:15)
[2016-07-22] MEDS: oxyCODONE/ACETAMINOPHEN 5 MG/325 MG TAB PO PRN ×2 (06:06→22:15)
[2016-07-22] MEDS: INSULIN ASPART SUPPLEMENTAL SCALE SQ SCH ×4 (06:07→21:00)
[2016-07-22 06:51] LABS: APTT (PATIENT) 69.6 SEC (24.3-30.1)
[2016-07-22 08:38] LABS: BICARBONATE 25.5 MEQ/L (21.0-32.0); POTASSIUM 3.6 MEQ/L (3.5-5.1)
[2016-07-22] MEDS: SODIUM CHLORIDE 0.9% FLUSH 5 ML FLUSH IVF SCH ×2 (09:00→21:00)
[2016-07-22] MEDS: LISINOPRIL 10 MG TAB PO SCH ×3 (10:34→21:00)
[2016-07-22] MEDS: ASPIRIN 325 MG TAB PO SCH (10:34)
[2016-07-22] MEDS: PANTOPRAZOLE SOD 40 MG DELAYED RELEASE TAB PO SCH (10:34)
[2016-07-22] MEDS: buPROPion HCL 150 MG SUSTAINED RELEASE TAB PO SCH (10:34)
[2016-07-22] MEDS: PRAVASTATIN SOD 40 MG TAB PO SCH (10:34)
[2016-07-22] MEDS: DONEPEZIL HCL 5 MG TAB PO SCH (10:34)
[2016-07-22] MEDS: amLODIPine BESYLATE 5 MG TAB PO SCH (10:34)
[2016-07-22] MEDS: DULoxetine HCl DR 60 MG CAP PO SCH (10:35)
[2016-07-22] MEDS: lamoTRIgine 100 MG TAB PO SCH ×2 (10:35→21:00)
[2016-07-22] MEDS: busPIRone HCL 10 MG TAB PO SCH ×2 (10:35→21:00)
[2016-07-22] MEDS: HYDROCHLOROTHIAZIDE 25 MG TAB PO SCH (10:35)
[2016-07-22] MEDS: FAMOTIDINE 20 MG TAB PO SCH ×2 (10:36→21:00)
--- NOTE | 2016-07-22 11:36 | EKG ---
Date Performed: 07/21/2016 Time Performed: 11:24:25 PTAGE: 71 years EKG: SINUS BRADYCARDIA LEFT ANTERIOR FASCICULAR BLOCK ABNORMAL ECG PREVIOUS TRACING : 07/21/2016 08.02 Since previous tracing, no significant change noted DOCTOR: Marek Taylor Interpretating Date/Time 07/22/2016 11:35:42
[2016-07-22 11:59] LABS: HEMATOCRIT 39.6 % (39.0-51.0); MEAN CORPUSCULAR HGB CONC 33.4 % (32.0-36.0); PLATELET COUNT 156 TH/MM3 (150-450); RED BLOOD COUNT 4.56 MIL/MM3 (4.50-5.90); RED CELL DISTRIBUTION WIDTH 14.1 % (11.6-17.2); REVIEW FLAG FINAL; WHITE BLOOD COUNT 6.9 TH/MM3 (4.0-11.0)
--- NOTE | 2016-07-22 15:35 | HHI.PR ---
Subjective Remarks Follow-up for lower extremity pain. at bedside. The patient states he's been having pain in his legs. He denies any chest pain, shortness breath, nausea, vomiting, wheezing. He does state that he has some COPD, quit smoking 4 years ago. Normal bowel movement yesterday. He complains of while he has been in the hospital. Objective Vitals Vital Signs Date Time Temp Pulse Resp B/P Pulse Ox O2 Delivery O2 Flow Rate FiO2 07/22/16 11:18 95.0 67 19 175/89 96 07/22/16 10:30 61 07/22/16 10:02 95.9 69 16 139/82 95 07/22/16 06:29 98.0 67 20 166/80 96 07/22/16 00:00 98.3 73 20 158/86 95 07/21/16 19:21 97.5 68 20 156/74 97 07/21/16 17:17 20 07/21/16 17:06 95.7 70 18 211/96 98 07/21/16 16:50 86 18 142/86 98 Nasal Cannula 2 I/O 07/21/16 07/21/16 07/21/16 07/22/16 07/22/16 07/22/16 07:00 15:00 23:00 07:00 15:00 23:00 Output Total 800 ml Balance -800 ml Output Urine Total 800 ml Result Diagram: 07/22/16 1053 07/22/16 0749 Imaging Last Impressions Chest X-Ray 07/21/16 0408 Signed Impressions: Service Date/Time: Thursday, July 21, 2016 04:43 - CONCLUSION: No acute disease. Adonis Penn MD Carotid Artery Ultrasound 07/21/16 0000 Signed Impressions: Service Date/Time: Thursday, July 21, 2016 22:55 - CONCLUSION: 1. No evidence for hemodynamically significant stenosis. Adonis Penn MD Objective Remarks GENERAL: Well-developed well-nourished. In no acute distress. SKIN: Warm and dry. No lesions noted. HEENT: Normocephalic. Pupils equal and round. Mucous membranes pink and moist. CARDIOVASCULAR: Regular rate and rhythm. No murmur appreciated. RESPIRATORY: No accessory muscle use. Clear to auscultation. Breath sounds equal bilaterally. GASTROINTESTINAL: Abdomen soft, non-tender, nondistended. Bowel sounds x4. MUSCULOSKELETAL: No obvious deformities. No clubbing or cyanosis. No edema. No TTP bilaterally. NEUROLOGICAL: Awake and alert. No focal neurological deficits. Moves upper and lower extremities spontaneously. Normal speech. PSYCHIATRIC: Slightly anxious mood and affect; insight and judgment normal. A/P Problem List: (1) Claudication of both lower extremities ICD Code: I73.9 Status: Acute (2) HTN (hypertension) ICD Code: I10 Status: Acute (3) Schizoaffective disorder ICD Code: F25.9 Status: Chronic Assessment and Plan 71-year-old male with past medical history of HTN, BPH, CAD, COPD, DM who presented with lower extremity pain Lower extremity pain/CAD/claudication: Vascular surgery was consulted. Lower extremity CTA with runoff performed, showed moderate stenosis of the ostium of the left external iliac, short segmental high-grade stenosis in the popliteal vessels bilaterally, moderate ostial stenosis of the celiac. Follow-up vascular surgery recommendations, anticipate endovascular repair. The patient was started on heparin GTT, aspirin on hold. Continue statin. Generalized pain: Patient was admitted to the chest pain center, however admitted to medicine as no specific chest pain. He was available by cardiology and cleared from their standpoint. Worse symptoms or lower extremity, likely secondary to the above. Continue home Percocet as needed for pain. Hypertension: Not well controlled. Increase home lisinopril. Continue HCTZ. Clonidine as needed. Anxiety/mood disorder: Resume home Seroquel, BuSpar, fluoxetine, bupropion, Lamictal. Low-dose Xanax when necessary. Diabetes mellitus: Hold home Onglyza for now. Coverage with SSI with [employer]. Other chronic medical conditions including dementia, GERD, glaucoma, CKD stage III: Stable at this time and will continue home medications as indicated. DVT prophylaxis: On heparin GTT. Avoid SCDs with PAD. Written by Jean-Paul Winchester, acting as scribe for Dr. Plascencia on 07/22/16 at 15:33. The documentation accurately reflects the work performed [id number] by me Dr. Plascencia on 07/22/16 at 15:33. Discharge Planning Follow-up vascular surgery recommendations. Problem Qualifiers (1) HTN (hypertension): Qualified Code: I10 - Essential hypertension (2) Schizoaffective disorder: Qualified Code: F25.9 - Schizoaffective disorder, unspecified type Jean-Paul Winchester Jul 22, 2016 15:35 Erma Plascencia MD Jul 22, 2016 16:43
--- NOTE | 2016-07-22 17:41 | PD.CAR.PN ---
CVT Progress Note Subjective/Hospital Course: I reviewed the CAT scan and patient has some inflow limitations especially around the area left external iliac artery however this is not hemodynamically significant Patient does have however near complete occlusion of both popliteal arteries and then reconstitution with two-vessel runoff to the feet I'll discuss with the patient the option of balloon dilatation of both of these with understanding that patient at this point does not have critical limb ischemia. With complete occlusion of popliteal arteries however patient will develop more severe ischemia and claudication so barring any contraindications this will be recommended procedure at this time We'll discuss this with patient tomorrow and schedule patient for endovascular stenting on 07/22/[address] angiogram with patient and the family Patient has significant dependent rubor elevation pallor in both feet pain Pain is mainly due to diabetes neuropathy and this is probably not going to change significantly with any type of vascular procedure Patient does have limited blood flow to the both feet considering all that tight left popliteal artery stenosis and moderate right luteal artery stenosis We will proceed with left popliteal balloon angioplasty tomorrow in the endovascular suite I've explained the risks and benefits of the procedure including remote possible limb loss as the result of the procedure Objective: Vital Signs Date Time Temp Pulse Resp B/P Pulse Ox O2 Delivery O2 Flow Rate FiO2 07/22/16 17:00 96.0 71 18 159/89 07/22/16 11:18 95.0 67 19 175/89 96 07/22/16 10:30 61 07/22/16 10:02 95.9 69 16 139/82 95 07/22/16 06:29 98.0 67 20 166/80 96 07/22/16 00:00 98.3 73 20 158/86 95 07/21/16 19:21 97.5 68 20 156/74 97 Labs: Laboratory Tests Test 07/22/16 07/22/16 07/22/16 06:05 07:49 10:53 Activated Partial 69.6 SEC Thromboplast Time (24.3-30.1) Sodium Level 138 MEQ/L (136-145) Potassium Level 3.6 MEQ/L (3.5-5.1) Chloride Level 105 MEQ/L (98-107) Carbon Dioxide Level 25.5 MEQ/L (21.0-32.0) Anion Gap 8 MEQ/L (5-15) Blood Urea Nitrogen 28 MG/DL (7-18) Creatinine 1.64 MG/DL (0.60-1.30) Estimat Glomerular Filtration 42 ML/MIN (>89) Rate Random Glucose 120 MG/DL (74-106) Calcium Level 8.7 MG/DL (8.5-10.1) White Blood Count 6.9 TH/MM3 (4.0-11.0) Red Blood Count 4.56 MIL/MM3 (4.50-5.90) Hemoglobin 13.2 GM/DL (13.0-17.0) Hematocrit 39.6 % (39.0-51.0) Mean Corpuscular Volume 87.0 FL (80.0-100.0) Mean Corpuscular Hemoglobin 29.0 PG (27.0-34.0) Mean Corpuscular Hemoglobin 33.4 % Concent (32.0-36.0) Red Cell Distribution Width 14.1 % (11.6-17.2) Platelet Count 156 TH/MM3 (150-450) Mean Platelet Volume 10.8 FL (7.0-11.0) Result Diagram: 07/22/16 1053 07/22/16 0749 Velma Aldrich MD Jul 22, 2016 17:41
[2016-07-22] MEDS ORDERED: ceFAZolin 2 GM PREMIX 50 ML IV SCH (17:45)
[2016-07-22 20:08] LABS: APTT (PATIENT) 27.4 SEC (24.3-30.1)
[2016-07-22] MEDS ORDERED: LATANOPROST 0.005% OPHT SOLN 2.5 ML BTL EACH EYE SCH (21:00)
[2016-07-22] MEDS ORDERED: QUEtiapine FUMARATE 200 MG TAB PO SCH (21:00)
[2016-07-23 04:00] VITALS: BP 108/62; PULSE 62; RESP 16; TEMP 98.1; O2SAT 97
[2016-07-23 04:48] VITALS: PULSE 60
[2016-07-23] MEDS: INSULIN ASPART SUPPLEMENTAL SCALE SQ SCH ×2 (05:54→11:00)
[2016-07-23 08:50] VITALS: BP 101/51; PULSE 61; RESP 20; TEMP 97.8; O2SAT 100
[2016-07-23] MEDS: lamoTRIgine 100 MG TAB PO SCH (09:00)
[2016-07-23] MEDS: LISINOPRIL 10 MG TAB PO SCH (09:00)
[2016-07-23] MEDS ORDERED: GABAPENTIN 100 MG CAP PO SCH (09:00)
[2016-07-23] MEDS: busPIRone HCL 10 MG TAB PO SCH (09:49)
[2016-07-23] MEDS: ASPIRIN 325 MG TAB PO SCH (09:49)
[2016-07-23] MEDS: FAMOTIDINE 20 MG TAB PO SCH (09:50)
[2016-07-23] MEDS: SODIUM CHLORIDE 0.9% FLUSH 5 ML FLUSH IVF SCH (09:50)
[2016-07-23] MEDS: DULoxetine HCl DR 60 MG CAP PO SCH (09:50)
[2016-07-23] MEDS: buPROPion HCL 150 MG SUSTAINED RELEASE TAB PO SCH (09:50)
[2016-07-23] MEDS: DONEPEZIL HCL 5 MG TAB PO SCH (09:50)
[2016-07-23] MEDS: PRAVASTATIN SOD 40 MG TAB PO SCH (09:50)
[2016-07-23] MEDS: PANTOPRAZOLE SOD 40 MG DELAYED RELEASE TAB PO SCH (09:50)
[2016-07-23] MEDS: HYDROCHLOROTHIAZIDE 25 MG TAB PO SCH (09:50)
--- NOTE | 2016-07-23 11:37 | HHI.PR ---
Subjective Remarks Follow-up for lower extremity pain. Patient with family at bedside. Plan for vascular intervention today. The patient reports his lower extremity pain is okay today. He denies any chest pain, shortness breath, nausea, vomiting. They noted that neuropathy is contributing to lower extremity pain. However patient has been tried on gabapentin and Lyrica in the past with adverse effects. They stated that he's been receiving B12 [facility] which has been helping. Objective Vitals Vital Signs Date Time Temp Pulse Resp B/P Pulse Ox O2 Delivery O2 Flow Rate FiO2 07/23/16 08:50 97.8 61 20 101/51 100 07/23/16 04:48 60 07/23/16 04:00 98.1 62 16 108/62 97 07/22/16 23:19 14 07/22/16 19:35 21 07/22/16 19:25 98.5 85 18 184/79 97 07/22/16 17:00 96.0 71 18 159/89 Result Diagram: 07/22/16 1053 07/22/16 0749 Imaging Last Impressions Chest X-Ray 07/21/16 0408 Signed Impressions: Service Date/Time: Thursday, July 21, 2016 04:43 - CONCLUSION: No acute disease. Adonis Penn MD Carotid Artery Ultrasound 07/21/16 0000 Signed Impressions: Service Date/Time: Thursday, July 21, 2016 22:55 - CONCLUSION: 1. No evidence for hemodynamically significant stenosis. Adonis Penn MD Aorta w/Runoff CTA 07/21/16 0000 Signed Impressions: Service Date/Time: Thursday, July 21, 2016 10:19 - CONCLUSION: 1. Patient appears to have a moderate stenosis of the ostium at the left external iliac which would be amenable to endovascular repair if clinically warranted. 2. There is segmental short segment high grade stenosis in the popliteal vessels bilaterally. .again, these may be amenable to endovascular repair. 3. Two vessel run off on the right with three vessel run off on the left. 4. Moderate ostial stenosis of the celiac. The SMA and both renal arteries are patent. 5. Large amount of stool throughout the colon. Mathew Gonzales MD Objective Remarks GENERAL: Well-developed well-nourished. In no acute distress. SKIN: Warm and dry. No lesions noted. HEENT: Normocephalic. Pupils equal and round. Mucous membranes pink and moist. CARDIOVASCULAR: Regular rate and rhythm. No murmur appreciated. RESPIRATORY: No accessory muscle use. Clear to auscultation. Breath sounds equal bilaterally. GASTROINTESTINAL: Abdomen soft, non-tender, nondistended. Bowel sounds x4. MUSCULOSKELETAL: No obvious deformities. No clubbing or cyanosis. No edema. No TTP bilaterally. NEUROLOGICAL: Awake and alert. No focal neurological deficits. Moves upper and lower extremities spontaneously. Normal speech. PSYCHIATRIC: Appropriate mood and affect; insight and judgment normal. A/P Problem List: (1) Claudication of both lower extremities ICD Code: I73.9 Status: Acute (2) HTN (hypertension) ICD Code: I10 Status: Acute (3) Schizoaffective disorder ICD Code: F25.9 Status: Chronic Assessment and Plan 71-year-old male with past medical history of HTN, BPH, CAD, COPD, DM who presented with lower extremity pain Lower extremity pain/CAD/claudication: Vascular surgery was consulted. Lower extremity CTA with runoff performed, showed moderate stenosis of the ostium of the left external iliac, short segmental high-grade stenosis in the popliteal vessels bilaterally, moderate ostial stenosis of the celiac. Vascular surgery recommended endovascular intervention today. Discussed with Dr. Godoy, no further need for heparin GTT, discontinue. On aspirin at home, further antiplatelet therapy per passive surgery. Continue statin. Symptoms also likely related to chronic peripheral neuropathy, family declines any further therapy for this, following with PCP. Generalized pain: Patient was admitted to the chest pain center, however admitted to medicine as no specific chest pain. He was available by cardiology and cleared from their standpoint. Worse symptoms or lower extremity, likely secondary to the above. Continue home Percocet as needed for pain. Hypertension: Better controlled overnight after increasing home lisinopril dose and resuming home anxiety latex. Continue lisinopril and HCTZ. Clonidine as needed. Anxiety/mood disorder: Continue home Seroquel, BuSpar, fluoxetine, bupropion, Lamictal. Low-dose Xanax when necessary. Diabetes mellitus: Hold home Onglyza for now. Coverage with SSI with [employer]. Other chronic medical conditions including dementia, GERD, glaucoma, CKD stage III: Stable at this time and will continue home medications as indicated. DVT prophylaxis: On heparin GTT. Avoid SCDs with PAD. Written by Jean-Paul Winchester, acting as scribe for Dr. Plascencia on 07/23/16 at 11:37. The documentation accurately reflects the work performed [id number] by me Dr. Plascencia on 07/23/16 at 11:37. Discharge Planning Follow-up vascular surgery recommendations after procedure today. Could potentially be discharged if cleared by vascular surgery. Problem Qualifiers (1) HTN (hypertension): Qualified Code: I10 - Essential hypertension (2) Schizoaffective disorder: Qualified Code: F25.9 - Schizoaffective disorder, unspecified type Jean-Paul Winchester Jul 23, 2016 11:37 Erma Plascencia MD Jul 23, 2016 16:26
[2016-07-23 13:34] VITALS: BP 120/62; PULSE 74; RESP 20; TEMP 97.6; O2SAT 99
--- NOTE | 2016-07-23 14:04 | PD.CAR.PN ---
CVT Progress Note Subjective/Hospital Course: I reviewed the CAT scan and patient has some inflow limitations especially around the area left external iliac artery however this is not hemodynamically significant Patient does have however near complete occlusion of both popliteal arteries and then reconstitution with two-vessel runoff to the feet I'll discuss with the patient the option of balloon dilatation of both of these with understanding that patient at this point does not have critical limb ischemia. With complete occlusion of popliteal arteries however patient will develop more severe ischemia and claudication so barring any contraindications this will be recommended procedure at this time We'll discuss this with patient tomorrow and schedule patient for endovascular stenting on 07/22/[address] angiogram with patient and the family Patient has significant dependent rubor elevation pallor in both feet pain Pain is mainly due to diabetes neuropathy and this is probably not going to change significantly with any type of vascular procedure Patient does have limited blood flow to the both feet considering all that tight left popliteal artery stenosis and moderate right luteal artery stenosis We will proceed with left popliteal balloon angioplasty tomorrow in the endovascular suite I've explained the risks and benefits of the procedure including remote possible limb loss as the result of the procedure 07/23/2016 Patient brought to endovascular suite Again discussed with him the options ins and outs of the procedure Patient states now that he has no leg pain feels great While the pulses were only dopplerable 2 days ago he has a palpable left and right dorsalis pedis pulse now Posterior tibial strong by Doppler bilateral Considering the patient is doing better with the degree of stenosis we can always do this at some other time for I can't make the patient better than he is now but I certainly can make him potentially worse Discussed with and we both agree that at this point endovascular procedure is not medically obligatory or warranted and if patient worsens in the future we can always do it then From our point patient can be discharged and follow-up in my office in 2-3 months Objective: Vital Signs Date Time Temp Pulse Resp B/P Pulse Ox O2 Delivery O2 Flow Rate FiO2 07/23/16 13:34 97.6 74 20 120/62 99 07/23/16 08:50 97.8 61 20 101/51 100 07/23/16 04:48 60 07/23/16 04:00 98.1 62 16 108/62 97 07/22/16 23:19 14 07/22/16 19:35 21 07/22/16 19:25 98.5 85 18 184/79 97 07/22/16 17:00 96.0 71 18 159/89 Result Diagram: 07/22/16 1053 07/22/16 0749 Velma Aldrich MD Jul 23, 2016 14:04
[2016-07-23] MEDS ORDERED: LISI10TA3 PO (14:11)
[2016-07-23] MEDS ORDERED: ASPI325T PO (14:11)
--- NOTE | 2016-07-23 14:14 | HHI.DS ---
Discharge Summary Admission Date Jul 21, 2016 at 07:39 Discharge Date: Jul 23, 2016 Admitting Diagnosis Chest Pain, Foot Pain (1) Claudication of both lower extremities ICD Code: I73.9 Diagnosis: Principal (2) HTN (hypertension) ICD Code: I10 Diagnosis: Secondary (3) Schizoaffective disorder ICD Code: F25.9 Diagnosis: Secondary (4) Neuropathy ICD Code: G62.9 Diagnosis: Principal Procedures none Brief History - From Admission This 71-year-old male presents to emergency room with complaints of cold and insensate legs. The patient apparently started having this this morning. Initially symptoms were apparently pains over his body but now only in legs. The patient denies having sustained any injuries and being diaphoretic. He can walk as far as he wants but with stops. He has poorly controlled hypertension. Question arises about any vascular implications. CBC/BMP: 07/22/16 1053 07/22/16 0749 Significant Findings Laboratory Tests Test 07/21/16 07/21/16 07/21/16 07/21/16 04:25 06:05 07:55 10:40 Monocytes (%) (Auto) 9.8 % (0.0-8.0) Eosinophils (%) (Auto) 8.0 % (0.0-4.0) Eosinophils # (Auto) 0.7 TH/MM3 (0-0.4) Potassium Level 3.4 MEQ/L (3.5-5.1) Blood Urea Nitrogen 28 MG/DL (7-18) Creatinine 1.64 MG/DL (0.60-1.30) Estimat Glomerular Filtration 42 ML/MIN (>89) Rate Random Glucose 127 MG/DL (74-106) Troponin I LESS THAN 0.02 LESS THAN 0.02 LESS THAN 0.02 NG/ML NG/ML NG/ML (0.02-0.05) (0.02-0.05) (0.02-0.05) Prothrombin Time 11.7 SEC (9.8-11.6) Test 07/21/16 07/22/16 07/22/16 22:44 06:05 07:49 Prothrombin Time 11.9 SEC (9.8-11.6) Activated Partial 42.7 SEC 69.6 SEC Thromboplast Time (24.3-30.1) (24.3-30.1) Blood Urea Nitrogen 28 MG/DL (7-18) Creatinine 1.64 MG/DL (0.60-1.30) Estimat Glomerular Filtration 42 ML/MIN (>89) Rate Random Glucose 120 MG/DL (74-106) Imaging Last Impressions Chest X-Ray 07/21/16 0408 Signed Impressions: Service Date/Time: Thursday, July 21, 2016 04:43 - CONCLUSION: No acute disease. Adonis Penn MD Carotid Artery Ultrasound 07/21/16 0000 Signed Impressions: Service Date/Time: Thursday, July 21, 2016 22:55 - CONCLUSION: 1. No evidence for hemodynamically significant stenosis. Adonis Penn MD Aorta w/Runoff CTA 07/21/16 0000 Signed Impressions: Service Date/Time: Thursday, July 21, 2016 10:19 - CONCLUSION: 1. Patient appears to have a moderate stenosis of the ostium at the left external iliac which would be amenable to endovascular repair if clinically warranted. 2. There is segmental short segment high grade stenosis in the popliteal vessels bilaterally. .again, these may be amenable to endovascular repair. 3. Two vessel run off on the right with three vessel run off on the left. 4. Moderate ostial stenosis of the celiac. The SMA and both renal arteries are patent. 5. Large amount of stool throughout the colon. Mathew Gonzales MD PE at Discharge GENERAL: Well-developed well-nourished. In no acute distress. SKIN: Warm and dry. No lesions noted. HEENT: Normocephalic. Pupils equal and round. Mucous membranes pink and moist. CARDIOVASCULAR: Regular rate and rhythm. No murmur appreciated. RESPIRATORY: No accessory muscle use. Clear to auscultation. Breath sounds equal bilaterally. GASTROINTESTINAL: Abdomen soft, non-tender, nondistended. Bowel sounds x4. MUSCULOSKELETAL: No obvious deformities. No clubbing or cyanosis. No edema. No TTP bilaterally. NEUROLOGICAL: Awake and alert. No focal neurological deficits. Moves upper and lower extremities spontaneously. Normal speech. PSYCHIATRIC: Appropriate mood and affect; insight and judgment normal. Pt update on day of discharge Patient was reevaluated by vascular surgery and interventional radiologist. Symptoms have improved. Apparently after discussion with the patient, the decision was made not to perform any intervention today and have the patient follow with vascular surgery as outpatient. Hospital Course 71-year-old male with past medical history of HTN, BPH, CAD, COPD, DM who presented with lower extremity pain Lower extremity pain/CAD/claudication: Vascular surgery was consulted. Lower extremity CTA with runoff performed, showed moderate stenosis of the ostium of the left external iliac, short segmental high-grade stenosis in the popliteal vessels bilaterally, moderate ostial stenosis of the celiac. Vascular surgery consulted, initially recommended endovascular intervention, but then recommended outpatient follow-up and management. Discussed with Dr. Godoy, no further need for heparin GTT, discontinue. Increase time aspirin. Continue statin. Symptoms also likely related to chronic peripheral neuropathy, family declines any further therapy for this, following with PCP. Generalized pain: Patient was admitted to the chest pain center, however admitted to medicine as no specific chest pain. He was available by cardiology and cleared from their standpoint. Worse symptoms or lower extremity, likely secondary to the above. Continue home Percocet as needed for pain. Hypertension: Better controlled overnight after increasing home lisinopril dose and resuming home anxiety latex. Continue lisinopril and HCTZ. Clonidine as needed. Anxiety/mood disorder: Continue home Seroquel, BuSpar, fluoxetine, bupropion, Lamictal. Low-dose Xanax when necessary. Diabetes mellitus: Resume home Onglyza. Other chronic medical conditions including dementia, GERD, glaucoma, CKD stage III: Stable at this time and will continue home medications as indicated. Pt Condition on Discharge: Stable Discharge Disposition: Discharge Home Discharge Time: > 30 minutes Discharge Instructions DIET: Follow Instructions for: Heart Healthy Diet, Diabetic Diet Activities you can perform: Regular-No Restrictions Follow up Referrals: PCP Follow-up - 1 Week [facility] - 3 Weeks with Velma Aldrich MD New Medications: Aspirin (Aspirin) 325 Mg Tab 325 MG PO DAILY Blood Clot Prevention #30 TAB Changed Medications: Lisinopril (Lisinopril) 10 Mg Tab 20 MG PO DAILY #30 Ref 0 TAB (Changed from: 10 MG) Continued Medications: Bupropion HCl ER 12 HR (Bupropion HCl ER 12 HR) 150 Mg Tab 150 MG PO DAILY Ref 0 TAB Buspirone (Buspirone) 30 Mg Tab 30 MG PO BID Anxiety Ref 0 TAB Cholecalciferol (Vitamin D) 1,000 Unit Cap Clotrimazole (Topical) (Anti-Fungal) 1 % Cre Cyanocobalamin (Vitamin B12) 500 Mcg Tab 500 MCG PO DAILY #1 BOTTLE Diphenhydramine HCl (Benadryl Allergy) 25 Mg Cap Docusate Sodium (Stool Softener) 100 Mg Cap Donepezil (Donepezil) 10 Mg Tab 10 MG PO DAILY Dementia #30 Ref [address] (Dul[address]) 60 Mg Capdr 60 MG PO DAILY #30 Ref 0 CAP Glucosamine (Glucosamine) 500 Mg Cap 500 MG PO DAILY Herbal Supplements Ref 0 CAP Pdsozpyrlwk-Nzxjkupmfyr-Ypd C- (Glucosamine Chondroitin M) 1 Cap Cap Hydrochlorothiazide (Hydrochlorothiazide) 25 Mg Tab 25 MG PO DAILY #30 Ref 0 TAB Ibuprofen (Motrin Ib) 200 Mg Tab 200 MG PO Q4H PRN PAIN SCALE 1 TO 2 Ref 0 TAB Lamotrigine (Lamotrigine) 200 Mg Tab 200 MG PO BID Control Seizures #60 Ref 0 TAB Latanoprost Opth Drops (Latanoprost Opth Drops) 0.005% Drops 1 DROP EACH EYE HS Refrigerate until opened. Glaucoma #2.5 Ref 0 ML Misc Natural Products (Turmeric Curcumin) 1 Cap [place]-3 Fatty Acids (Fish Oil) 500 Mg Cap Oxycodone-Acetaminophen (Percocet) 5-325 mg Tab 2 TAB PO Q6H PRN PAIN SCALE 6 TO 10 #20 Ref 0 TAB Pantoprazole (Pantoprazole) 40 Mg Tab 40 MG PO DAILY Reflux #30 Ref 0 TAB Pravastatin (Pravastatin) 40 Mg Tab 40 MG PO DAILY Cholesterol Management #30 Ref 0 TAB Quetiapine (Quetiapine) 400 Mg Tab 400 MG PO HS #30 Ref 0 TAB Ranitidine (Ranitidine) 300 Mg Tab 300 MG PO BID Heartburn Management #30 Ref 0 TAB Saxagliptin (Onglyza) 2.5 Mg Tab 2.5 MG PO DAILY Blood Sugar Management #30 Ref 0 TAB Discontinued Medications: Aspirin DR (Aspirin 81) 81 Mg Tabdr 81 MG PO DAILY Ref 0 TAB Additional Information Written by Jean-Paul Winchester, acting as scribe for Dr. Plascencia on 07/23/16 at 1430 The documentation accurately reflects the work performed [id number] by me Dr. Plascencia on 07/23/16 at 1430 Jean-Paul Winchester Jul 23, 2016 14:14 Erma Plascencia MD Jul 23, 2016 16:27
[2016-07-24] MEDS ORDERED: LISINOPRIL 10 MG TAB PO SCH (09:00)
== END 2016-07-23 16:40 | disposition home or self-care (01) | DRG 300 ==
LOC: NEPC 03:58 → NEDA 07:39 → NEPGCP 17:00
PROVIDERS: ADMIT Hospitalist; ATTEND Hospitalist
DX: I70.213 Atherosclerosis of native arteries of extremities with intermittent claudication, bilateral legs (principal); I70.92 Chronic total occlusion of artery of the extremities; E11.22 Type 2 diabetes mellitus with diabetic chronic kidney disease; F03.90 Unspecified dementia, unspecified severity, without behavioral disturbance, psychotic disturbance, mood disturbance, and anxiety; E11.40 Type 2 diabetes mellitus with diabetic neuropathy, unspecified; N18.3 Chronic kidney disease, stage 3 (moderate); I12.9 Hypertensive chronic kidney disease with stage 1 through stage 4 chronic kidney disease, or unspecified chronic kidney disease; I25.10 Atherosclerotic heart disease of native coronary artery without angina pectoris; F25.9 Schizoaffective disorder, unspecified; E78.5 Hyperlipidemia, unspecified; N40.0 Benign prostatic hyperplasia without lower urinary tract symptoms; J44.9 Chronic obstructive pulmonary disease, unspecified; F31.9 Bipolar disorder, unspecified; F41.9 Anxiety disorder, unspecified; H40.9 Unspecified glaucoma; G89.29 Other chronic pain; K21.9 Gastro-esophageal reflux disease without esophagitis; Z87.891 Personal history of nicotine dependence
CPT/HCPCS: 71010; 75635; 80048; 82550; 82552; 82948; 84484; 85025; 85027; 85610; 85730; 86850; 86900; 86901; 93005; 93880; 96374; J1170; J1644; J2270; J7030; Q9967